=== PATIENT | male | born 1975 | race African-American/Black ===

== ENCOUNTER 2021-04-03 15:32 | Emergency (ER) | payer SELFPAY ==
[2021-04-03 23:29] LABS: SARS-CoV-2 PCR by NAA Not Detected (NotDetected)
== END 2021-04-03 16:36 | disposition home or self-care (01) ==
LOC: ERS 15:32
DX: J02.9 Acute pharyngitis, unspecified (principal); M79.10 Myalgia, unspecified site; Z20.822 Contact with and (suspected) exposure to COVID-19; I10 Essential (primary) hypertension; F17.210 Nicotine dependence, cigarettes, uncomplicated
CPT/HCPCS: 71046; 99283; U0003; U0005

== ENCOUNTER 2021-08-16 11:54 | Observation (INO) | payer SELFPAY ==
[2021-08-16 19:24] VITALS: BMI 33.9
[2021-08-16] MEDS ORDERED: Nitroglycerin 0.4 MG TAB (25 Tab Bottle) SL PRN (21:27)
[2021-08-16] MEDS ORDERED: Ondansetron PF 4 MG/2 ML Vial IVP PRN (21:27)
[2021-08-16] MEDS ORDERED: Acetaminophen 325 MG TAB PO PRN (21:27)
[2021-08-16] MEDS ORDERED: Sodium Chloride 0.9% 1,000 ML IV SCH (21:45)
[2021-08-16] MEDS ORDERED: hydrALAZINE 20 MG/ML VIAL SLOW IVP PRN (22:00)
[2021-08-16 22:16] LABS: Anion Gap 16 mmol/L (10-20); BUN (Urea Nitrogen) 18 mg/dL (8.9-20.6); Calc. Creatinine Clearance 143 mL/min (70-130); Calcium 11.5 mg/dL (7.8-10.44); Carbon Dioxide 23 mmol/L (22-29); Chloride 104 mmol/L (98-107); Glucose 98 mg/dL (70-105); Potassium 4.2 mmol/L (3.5-5.1); Sodium 139 mmol/L (136-145)
[2021-08-16 22:23] LABS: Troponin I Less than 0.010 ng/mL (< 0.028)
[2021-08-16] MEDS ORDERED: FLU VACC QS2021-22(6MOS UP)/PF 60 MCG/0.5 ML SYRINGE IM ONE (23:45)
[2021-08-17 01:43] LABS: Troponin I Less than 0.010 ng/mL (< 0.028)
[2021-08-17] MEDS: Sodium Chloride 0.9% 1,000 ML IV SCH ×2 (02:00→07:05)
[2021-08-17 05:24] LABS: Hemoglobin A1c 6.1 % (4.0-6.0)
[2021-08-17 05:35] LABS: #Basophils 0.1 thou/uL (0.0-0.2); #Eosinphils 0.3 thou/uL (0.0-0.7); #Lymphocytes 1.9 thou/uL (1.20-3.40); #Monocytes 0.5 thou/uL (0.11-0.59); #Neutrophils 2.4 thou/uL (1.40-6.50); %Eosinophils 5.8 % (0.0-10.0); %Monocytes 9.7 % (0.0-10.0); %Neutrophils 46.6 % (42.0-75.0); Hemoglobin 15.6 g/dL (14.0-18.0); Mean Corpuscular HGB CONC 34.2 g/dL (32.0-36.0); Mean Corpuscular Hemoglobin 28.2 pg (27.0-31.0); Mean Corpuscular Volume 82.4 fL (78.0-98.0); Mean Platelet Volume 7.3 fL (7.4-10.4); Platelet Count 328 thou/uL (130-400); RBC Distribution Width 12.6 % (11.5-14.5); Red Blood Cell (RBC) Count 5.54 mill/uL (4.70-6.10); White Blood Cell (WBC) Count 5.2 thou/uL (4.8-10.8)
[2021-08-17 05:50] LABS: ALT (SGPT) 50 U/L (8-55); AST (SGOT) 44 U/L (5-34); Albumin 4.2 g/dL (3.5-5.0); Alkaline Phosphatase 56 U/L (40-110); Bilirubin, Direct 0.2 mg/dL (0.1-0.3); Bilirubin, Total 0.8 mg/dL (0.2-1.2); Protein, Total 7.2 g/dL (6.0-8.3)
[2021-08-17 05:52] LABS: Anion Gap 11 mmol/L (10-20); BUN (Urea Nitrogen) 20 mg/dL (8.9-20.6); Calc. Creatinine Clearance 133 mL/min (70-130); Carbon Dioxide 28 mmol/L (22-29); Chloride 104 mmol/L (98-107); Potassium 4.1 mmol/L (3.5-5.1); Sodium 139 mmol/L (136-145)
[2021-08-17 05:53] LABS: Cardiac Risk 5.8 (Less than 4.5); Cholesterol 208 mg/dl (< 200 Desired); Glucose 96 mg/dL (70-105); HDL Cholesterol 36 mg/dL (>60 Neg Risk); LDL Cholesterol, Calculated 149 mg/dL; Triglycerides 114 mg/dL (Less than 150)
[2021-08-17] MEDS ORDERED: Lisinopril/Hydrochlorothiazide 20 mg/12.5 mg Tablet PO SCH (09:00)
[2021-08-17 10:26] LABS: Phosphorus 2.9 mg/dL (2.3-4.7)
[2021-08-17 12:25] VITALS: BP 141/69; TEMP 98.4
[2021-08-18] MEDS ORDERED: Lisinopril 20 MG TAB PO SCH (09:00)
== END 2021-08-17 15:10 | disposition home or self-care (01) ==
LOC: 2NO 19:17
PROVIDERS: ADMIT Internal Medicine; ATTEND Nurse Practitioner Family
DX: R07.2 Precordial pain (principal); N17.9 Acute kidney failure, unspecified; E83.52 Hypercalcemia; R79.89 Other specified abnormal findings of blood chemistry; R73.03 Prediabetes; E78.5 Hyperlipidemia, unspecified; I10 Essential (primary) hypertension; E66.9 Obesity, unspecified; Z68.33 Body mass index [BMI] 33.0-33.9, adult; Z20.822 Contact with and (suspected) exposure to COVID-19; Z79.899 Other long term (current) drug therapy
CPT/HCPCS: 36415; 71045; 78452; 80048; 80061; 80076; 82550; 83036; 83735; 83970; 84100; 84484; 85025; 93005; 93010; 93017; A9500; G0378; J0153; J7050